=== PATIENT | female | born 1935 | race Caucasian/White ===

== ENCOUNTER 2016-10-25 06:48 | Inpatient (IN) ==
[2016-10-25] MEDS ORDERED: ZOFRAN IV ONE (07:11)
[2016-10-25] MEDS ORDERED: TYLENOL PO ONE (07:11)
[2016-10-25] MEDS ORDERED: MORPHINE IV ONE (07:11)
[2016-10-25] MEDS ORDERED: NS 1,000 ML IV ONE (07:11)
[2016-10-25 07:19] LABS: BASO% 0.2 % (0.0-0.8); EOS# 0.05 X1000 (0.0-0.7); EOS% 0.5 % (0.0-10.0); HEMATOCRIT 40.4 % (37.0-47.0); HEMOGLOBIN 13.9 g/dL (12.0-16.0); IMM GRAN# 0.03 X1000 (0.0-0.04); IMM GRAN% 0.3 % (0.0-0.5); LYMPH# 0.44 X1000 (1.2-3.4); LYMPH% 4.6 % (20.5-51.1); MANUAL DIFF NEEDED? NO; MCH 30.2 PG (27-31); MCHC 34.4 g/dL (33-37); MCV 87.6 FL (81-99); MONO# 0.53 X1000 (0.11-0.59); MONO% 5.5 % (1.7-9.3); NEUT% 88.9 % (42.2-75.2); PLT 168 X1000 (130-400); RBC 4.61 XMIL (4.2-5.4)
[2016-10-25 07:31] LABS: ALBUMIN 4.1 g/dL (3.5-5.0); CALCIUM 9.5 mg/dL (8.8-10.2); POTASSIUM 4.2 mmol/L (3.5-5.1); TOTAL BILIRUBIN 0.4 mg/dL (0.20-1.00); TOTAL PROTEIN 6.9 g/dL (6.3-8.3)
--- NOTE | 2016-10-25 07:48 | Diag Imaging Result Doc PS360 ---
EXAM: CHEST-2 VIEWS HISTORY: CP/fever/cough TECHNIQUE: Upright AP and lateral chest COMMENT: There are some vascular calcifications in the arch and proximal brachiocephalic vessels. There is no evidence of acute pulmonary disease and the heart size is within normal limits. Compared to 12/31/2015 there is been no significant change. IMPRESSION: No evidence of acute disease. Electronically signed by Wade Hale 10/25/2016 7:46 AM
[2016-10-25 07:56] LABS: INR 1.02; PROTIME 10.7 Seconds (9.2-11.7); PTT 24.7 Seconds (22.0-36.0)
[2016-10-25 07:57] LABS: URINE CULTURE NEEDED? NO; URINE MICRO REVIEW NEEDED? NO; URINE SOURCE CLEAN CATCH
[2016-10-25 07:58] LABS: MAGNESIUM 1.7 mg/dL (1.5-2.7)
[2016-10-25 08:03] LABS: BILIRUBIN URINE NEGATIVE (NEGATIVE); BLOOD URINE NEGATIVE (NEGATIVE); COLOR YELLOW; GLUCOSE URINE NEGATIVE (NEGATIVE); LEUKOCYTES URINE NEGATIVE (NEGATIVE); NITRITE URINE NEGATIVE (NEGATIVE); PROTEIN URINE TRACE mg/dL (NEGATIVE); SP GRAVITY URINE 1.021; TURBIDITY URINE CLEAR (CLEAR); UR EPITHELIAL CELLS <10 /HPF (<10); URINE BACTERIA NEGATIVE /HPF; URINE RBC <10 /HPF (<10); URINE WBC <10 /HPF (<10); UROBILINOGEN URINE NORMAL (NORMAL)
--- NOTE | 2016-10-25 08:46 | EKG Report ---
Test Performed on : 10/25/2016 08:40:01 AM Test Reason : CP Blood Pressure : / mmHG Vent. Rate : 085 BPM Atrial Rate : 085 BPM P-R Int : 160 ms QRS Dur : 080 ms QT Int : 364 ms P-R-T Axes : 078 -31 039 degrees QTc Int : 433 ms Normal sinus rhythm. Left axis deviation Abnormal ECG No previous ECGs available Unconfirmed Result
--- NOTE | 2016-10-25 09:46 | PROVIDER DOCUMENTATION ---
This chart was entered by Erinn Nichole Scribe, acting as scribe for Chris Quintero MD. HPI-Musculoskeletal Pain/Inj - GENERAL Chief Complaint: Extremity Pain Stated Complaint: foot pain Time Seen by Provider: 10/25/16 06:56 Source: patient - HX OF PRESENT ILLNESS-MUSKULOSKELTAL Nature of Presenting Problem: 80 y/o F presents to ED cc of bilat leg pain. Pt states the pain has been going on for " a while". Pt reports generalized pain all over. In triage pt had a temp of 101 and reports this as being normal for her. Pt is alert and oriented. Pt is sitting comfortable in bed. Quality of Pain: reports: aching Severity in ED: mild Onset/Duration: other ("a while") Timing: still present Modifying Factors: improves with: nothing Any recent injury?: No (denies) Review of Systems - Adult - REVIEW OF SYSTEMS - ADULT Constitutional: reports: other (generalized pain all over). denies: chills, fever Eyes: denies: blurred vision, double vision Ears, Nose, Mouth & Throat: denies: ear pain, nose pain, loose teeth, throat pain Cardiovascular: denies: chest pain, irregular heart rate, palpitations, syncope Respiratory: denies: chronic cough, cough, pleurisy, shortness of breath Genitourinary: denies: flank pain, hematuria, hesitency, urgency Musculoskeletal: reports: other (bilat leg pain). denies: bone pain, back pain , muscle aches Neurological: denies: dizziness/vertigo, headache/migraines, seizure, slurred speech, syncope, tremors Past History - Adult - PAST MEDICAL HISTORY-ADULT Review of Records: reports: Old Records Reviewed, Nursing Assessment Review Major Childhood Illnesses: reports: denies history Cardiovascular: reports: CAD, HTN Respiratory: reports: COPD Gastrointestinal: reports: denies history Obstetrical/Gynecological: reports: denies history Genitourinary: reports: denies history Musculoskeletal: reports: arthritis Neurological: reports: denies history Endocrine/Immune: reports: Diabetes Other Conditions: reports: denies history - PRIOR SURGERIES/PROCEDURES Surgical/Procedure History: reports: cholecystectomy, hysterectomy, other ( cataract surgrey) - PRIOR HOSPITALIZATIONS Prior Hospitalizations: reports: none - IMMUNIZATION STATUS Childhood Immunizations: See Nurse Assessment Flu Vaccine: See Nurse Assessment - FAMILY HISTORY Family History: reviewed, not pertinent - SOCIAL HISTORY Smoking: greater than 1 pack/day Provider spent 3-5 mins advising pt. on dangers of tobacco.: Discussed manners to quit use, and f/u contacts for add'l counseling. Substance Use: denies Physical Exam-Injury Related - Physical Exam-Injury Related Initial Vital Signs Reviewed: Yes General Appearance: appears well, alert, no apparent distress Eyes: PERRL/EOMI, pink conjunctivae Head, Ears, Nose, Mouth & Throat: moist mucous membranes, normal ENT inspection Neck: non-tender, full range of motion, supple Respiratory: chest non-tender, lungs clear, normal breath sounds Cardiovascular: normal peripheral pulses, no edema, no gallop, tachycardia Abdominal Exam: normal bowel sounds, non tender, soft Lymphatic: no adenopathy Back Exam: normal inspection, no CVA tenderness, no vertebral tenderness Extremity: normal range of motion, normal gait, tenderness (to bilat legs) Integumentary: normal color, warm/dry Neurologic: grossly normal, no motor/sensory deficits Psych/Mental Status: oriented x 3 - Glascow Coma Score Best Eye Response (Alyson): (4) open spontaneously Best Verbal Response (Alyson): (5) oriented Best Motor Response (Alyson): (6) obeys commands Eldridge Total: 15 Progress - PLAN OF CARE/RESULTS Progress/Plan/Lab Results: Vital Signs - 8 hr 10/25/16 06:51 10/25/16 08:00 10/25/16 08:02 Temperature 101.6 F H Pulse Rate 121 H 91 H Respiratory Rate 18 18 Blood Pressure 139/52 123/46 O2 Sat by Pulse Oximetry 94 L 91 L 98 10/25/16 09:28 Temperature Pulse Rate 74 Respiratory Rate 25 H Blood Pressure 123/46 O2 Sat by Pulse Oximetry 96 Laboratory Results - last 24 hr 10/25/16 10/25/16 10/25/16 07:00 07:00 07:00 WBC 9.64 RBC 4.61 Hgb 13.9 Hct 40.4 MCV 87.6 MCH 30.2 MCHC 34.4 RDW Std Deviation 13.2 Plt Count 168 MPV 11.0 H Immature Gran % (Auto) 0.3 Neut % (Auto) 88.9 H Lymph % (Auto) 4.6 L Hall % (Auto) 5.5 Eos % (Auto) 0.5 Baso % (Auto) 0.2 Immature Gran # (Auto) 0.03 Neut # (Auto) 8.57 H Lymph # (Auto) 0.44 L Hall # (Auto) 0.53 Eos # (Auto) 0.05 Baso # (Auto) 0.02 PT INR PTT (Actin FS) D-Dimer Sodium 138 Potassium 4.2 Chloride 100 Carbon Dioxide 24 L Anion Gap 14 BUN 17 Creatinine 1.1 H Estimated GFR/1.73 m2 48 BUN/Creatinine Ratio 15 Glucose 180 H Calculated Osmolality 282 Calcium 9.5 Magnesium Total Bilirubin 0.40 AST 26 ALT 24 Alkaline Phosphatase 42 Creatine Kinase Troponin T Lvf-[id number]-Xmncxfxxrvc Pept Total Protein 6.9 Albumin 4.1 Globulin 2.8 Albumin/Globulin Ratio 1.5 Lipase Plasma Lactate 1.5 Urine Source Urine Color Urine Turbidity Urine pH Ur Specific [place] Urine Protein Ur Glucose (Stick) Ur Ketones (Stick) Urine Blood Urine Nitrite Urine Bilirubin Urobilinogen Dipstick Urine Leukocytes Urine WBC (Auto) Urine RBC (Auto) U Epithel Cells (Auto) Urine Bacteria (Auto) 10/25/16 10/25/16 10/25/16 07:00 07:00 07:00 WBC RBC Hgb Hct MCV MCH MCHC RDW Std Deviation Plt Count MPV Immature Gran % (Auto) Neut % (Auto) Lymph % (Auto) Hall % (Auto) Eos % (Auto) Baso % (Auto) Immature Gran # (Auto) Neut # (Auto) Lymph # (Auto) Hall # (Auto) Eos # (Auto) Baso # (Auto) PT INR PTT (Actin FS) D-Dimer 0.67 H Sodium Potassium Chloride Carbon Dioxide Anion Gap BUN Creatinine Estimated GFR/1.73 m2 BUN/Creatinine Ratio Glucose Calculated Osmolality Calcium Magnesium 1.7 Total Bilirubin AST ALT Alkaline Phosphatase Creatine Kinase 35 Troponin T Qgv-[id number]-Qpcmnlhxjbv Pept 118 Total Protein Albumin Globulin Albumin/Globulin Ratio Lipase 25 Plasma Lactate Urine Source Urine Color Urine Turbidity Urine pH Ur Specific [place] Urine Protein Ur Glucose (Stick) Ur Ketones (Stick) Urine Blood Urine Nitrite Urine Bilirubin Urobilinogen Dipstick Urine Leukocytes Urine WBC (Auto) Urine RBC (Auto) U Epithel Cells (Auto) Urine Bacteria (Auto) 10/25/16 10/25/16 10/25/16 07:00 07:00 07:51 WBC RBC Hgb Hct MCV MCH MCHC RDW Std Deviation Plt Count MPV Immature Gran % (Auto) Neut % (Auto) Lymph % (Auto) Hall % (Auto) Eos % (Auto) Baso % (Auto) Immature Gran # (Auto) Neut # (Auto) Lymph # (Auto) Hall # (Auto) Eos # (Auto) Baso # (Auto) PT 10.7 INR 1.02 PTT (Actin FS) 24.7 D-Dimer Sodium Potassium Chloride Carbon Dioxide Anion Gap BUN Creatinine Estimated GFR/1.73 m2 BUN/Creatinine Ratio Glucose Calculated Osmolality Calcium Magnesium Total Bilirubin AST ALT Alkaline Phosphatase Creatine Kinase Troponin T < 0.010 Doj-T-Uqjphsauecm Pept Total Protein Albumin Globulin Albumin/Globulin Ratio Lipase Plasma Lactate Urine Source CLEAN CATCH Urine Color YELLOW Urine Turbidity CLEAR Urine pH 6.0 Ur Specific [place] 1.021 Urine Protein TRACE A Ur Glucose (Stick) NEGATIVE Ur Ketones (Stick) TRACE A Urine Blood NEGATIVE Urine Nitrite NEGATIVE Urine Bilirubin NEGATIVE Urobilinogen Dipstick NORMAL Urine Leukocytes NEGATIVE Urine WBC (Auto) <10 Urine RBC (Auto) <10 U Epithel Cells (Auto) <10 Urine Bacteria (Auto) NEGATIVE Orders Category Date Time Status Cardiac Monitoring DIRECTED Care 10/25/16 07:11 Active Saline Loc NOW Care 10/25/16 07:11 Active CHEST-2 VIEWS [RAD] Stat Exams 10/25/16 07:11 Completed BLOOD CULTURE [BLDCUL] Stat Lab 10/25/16 07:00 Ordered CBC WITH ELECTRONIC DIFF [HEME] Stat Lab 10/25/16 07:00 Completed CK PROFILE [SP CHEM] Stat Lab 10/25/16 07:00 Completed COMPREHENSIVE METABOLIC PANEL [CHEM] Stat Lab 10/25/16 07:00 Completed D-DIMER [CHEM] Stat Lab 10/25/16 07:00 Completed LACTATE, PLASMA [CHEM] Stat Lab 10/25/16 07:00 Completed LIPASE [CHEM] Stat Lab 10/25/16 07:00 Completed MAGNESIUM [CHEM] Stat Lab 10/25/16 07:00 Completed PRO B-NATRIURETIC PEPTIDE Stat Lab 10/25/16 07:00 Completed PROTIME WITH INR [COAG] Stat Lab 10/25/16 07:00 Completed PTT [COAG] Stat Lab 10/25/16 07:00 Completed TROPONIN T Stat Lab 10/25/16 07:00 Completed UA NIMS W/REFLEX CULT [URINALYSIS] Stat Lab 10/25/16 07:51 Completed 0.9% Sodium Chloride Inj [Ns] 1,000 ml Med 10/25/16 07:11 Discontinued IV 999 mls/hr Acetaminophen [Tylenol] Med 10/25/16 07:11 Discontinued 1,000 mg PO NOW ONE Morphine Med 10/25/16 07:11 Discontinued 4 mg IV NOW ONE Ondansetron [Zofran] Med 10/25/16 07:11 Discontinued 4 mg IV NOW ONE EKG [EKG] Stat Ther 10/25/16 07:11 Draft PLAN: LABS , TREAT PAIN/NAUSEA , EKG , MONITOR PT Result Diagrams: 10/25/16 07:00 10/25/16 07:00 - REASSESSMENT Reassessment #1 Time Reassessed: 09:42 Status: improving (Pt is doing well w/o complaints. Daughter expressed the concerns that pt is more and more forgetting and can not take care of herself/ weak with agitations occassionally, etc. Daughter wants pt to be thoroughtly evaluated.) - CONSULTS/PCP/HOSPITALIST Notification #1 *Consult/PCP/Hospitalist*: Dr. Brown Time Discussed: 09:45 Reason/Comments: Admit to [place] Consult Disposition: Admit Departure - Departure Date of Disposition Decision: 10/25/16 Time of Disposition Decision: 09:45 DIAGNOSIS: Fever, Altered mental status, Leg pain Disposition: ADMITTED INPATIENT 09 Certified Medical Emergency: Emergent Condition: Stable Referrals and Follow-Ups: None,PCP [Primary Care Provider] - - Critical Care Note This patient required my direct & personal management of CC.: No This chart was documented by the indicated scribe, (Erinn Nichole Scribe) and accurately reflects the services I performed and decisions made by me, Chris Quintero MD, as attested by the provider's signature.
--- NOTE | 2016-10-25 10:50 | Diag Imaging Result Doc PS360 ---
EXAM: HEAD W/O CONTRAST INDICATION: AMS COMPARISON: None. FINDINGS: There is very minimal low-attenuation in the right parietal lobe periventricular and subcortical white matter suggesting minimal microangiopathy. There is no definite acute infarct given the limited sensitivity of CT versus MRI. There is no discrete intracranial mass, mass effect, or intracranial hemorrhage. The surrounding soft tissues and bony structures are essentially unremarkable. IMPRESSION: Suggestion of minimal white matter microangiopathy but no definite acute intracranial pathology. Electronically signed by Can Hill 10/25/2016 10:48 AM
[2016-10-25] MEDS ORDERED: DUONEB (A & A) INH PRN (11:45)
--- NOTE | 2016-10-25 12:51 | Diag Imaging Result Doc PS360 ---
EXAM: ABDOMEN/PELVIS W/CONTRAST INDICATION: abdominal pain / fever COMPARISON: None. FINDINGS: There are several calcified granulomata in the liver and the spleen. There has been a previous cholecystectomy. There are a couple small cystic appearing foci at the lower pole of the left kidney, perhaps containing blood products or proteinaceous debris. The kidneys are grossly unremarkable, otherwise. There is extensive diverticulosis coli, mainly involving the sigmoid and descending colon. There is no evidence of diverticulitis, however. There is no evidence of bowel obstruction. There are several shotty borderline prominent retroperitoneal as well as epigastric lymph nodes that are nonspecific. For reference, one of the larger lymph nodes is in the retroperitoneum on the left on image 45 of series 3 and measures up to 11.2 x 1.0 cm axially. There is trace nonspecific fluid layering in the pelvis. No focal inflammatory changes or free abdominal gas is appreciated. There is extensive aortoiliac atherosclerotic disease but there is no evidence of aneurysm. The remainder of the solid viscera of the abdomen and pelvis and the remainder of the GI tract are essentially unremarkable. There is evidence of prior kyphoplasty/vertebroplasty at L1. There are degenerative changes throughout the spine. Otherwise, the bony structures are grossly intact. IMPRESSION: 1.Extensive uncomplicated diverticulosis coli. 2.Nonspecific shotty borderline prominent retroperitoneal and epigastric lymph nodes. 3.Trace pelvic free fluid that is nonspecific. 4.Other incidental/nonacute findings detailed above. Electronically signed by Can Hill 10/25/2016 12:48 PM
--- NOTE | 2016-10-25 12:56 | HISTORY AND PHYSICAL ---
PRIMARY CARE PROVIDER: Dr. Rodrigo Brown. CHIEF COMPLAINT: Leg and abdominal pain. HISTORY OF PRESENT ILLNESS: Rodolfo Kerr is an 80-year-old female with a history of nicotine dependence, type 2 diabetes, COPD, history of TIAs, hypertension, hyperlipidemia, PAF, and arthritis, who presents with very vague complaints of right lower extremity pain that began this morning at around midnight. It woke her up out of sleep. She reports foot pain that began to travel up her right leg, eventually into both legs, and then switching back over to the right side, traveling up the right side of her abdomen and ultimately into the midsternal section of her chest. The symptoms have been constant since they began. She reports some abdominal pain and nausea, but no vomiting, and some mild shortness of breath, but no exertional type of angina. The symptoms brought her to the ER. In the ER, her labs were done and they were essentially normal with the exception of some mildly elevated renal function. Her vital signs, however, revealed a fever of 101.6 with tachycardia. She reports that she has had a bladder mass procedure done in the past and that it was not completely taken out, and she was told she would have fevers all of her life. She has no other signs of systemic infection. Her lactic acid is only 1.5. She does, however, have some significant right upper quadrant tenderness to palpation. So, given the fever and abdominal pain, we are going to admit her for further treatment and evaluation. PAST MEDICAL HISTORY: 1. COPD. 2. Nicotine dependence. 3. Hypertension. 4. Hyperlipidemia. 5. Paroxysmal atrial fibrillation. 6. Type 2 diabetes. SURGICAL HISTORY: She has had a D and C, bladder sling, bladder mesh, back surgery, bilateral oophorectomy, cholecystectomy. SOCIAL HISTORY: Patient smokes a pack a day. She is . She lives in [place] by herself. She does have the support of her children. FAMILY HISTORY: Noncontributory. REVIEW OF SYSTEMS: A 14-point review of systems was obtained and found to be negative with the exception of the HPI. ALLERGIES: Milk, onions, penicillin, Tylenol, aspirin, carrots, and codeine. HOME MEDICATIONS: Currently being compiled. PHYSICAL EXAMINATION: VITAL SIGNS: Blood pressure is 123/46, heart rate 74, respiratory rate 18, O2 saturation 99% on room air, and temperature is 98.6 degrees. GENERAL: This is an elderly and disheveled-appearing 80-year-old female, lying in the hospital bed in no acute distress. NEUROLOGIC: The patient is awake and alert. She is slightly confused. She thought she was at [facility], but answered all her other orientation questions correctly. She follows commands without focal deficits. HEENT: Head is atraumatic and normocephalic. Her pupils are equal, round, and reactive to light. Oral mucosa is a bit dry. Trachea is midline. There is no JVD. CHEST: Diminished throughout, with scattered wheezes. CARDIOVASCULAR: Regular rate and rhythm. S1 and S2 noted. No murmurs. GASTROINTESTINAL: Right upper quadrant tenderness to palpation. Overall, belly is soft and nondistended. Hypoactive bowel sounds noted. EXTREMITIES: Without edema, clubbing or cyanosis. Pulses are palpable, but diminished bilaterally. DIAGNOSTIC DATA: Chest x-ray does not show anything acute. Head CT is negative. EKG shows normal sinus rhythm without acute ST or T abnormalities. WBC 9.64, hemoglobin 4.61, hemoglobin 13.9, hematocrit 40.4, platelet count 168,000. PT 10.7 and INR 1.02. D-dimer 0.67. Sodium 138, potassium 4.2, chloride 100, CO2 of 24, anion gap 14, BUN 17, creatinine 1.1 glucose 180. LFTs within normal limits. Magnesium 1.7. Troponin negative. Lactate 1.5. UA is negative. ASSESSMENT AND PLAN: 1. Fever of unknown origin: Boyle cultures have been ordered. We are also going to check a CT of the abdomen and pelvis, given her abdominal pain. We will not start any antibiotics at present, as she has no clear indications. 2. Abdominal pain: We will check ultrasound and CT of the abdomen, keep her hydrated with IV fluids and give her antiemetics. 3. Chronic obstructive pulmonary disease: Not in exacerbation. She is wheezing a little, so we will give her some breathing treatments. 4. Type 2 diabetes. Will start pattern blood sugars and sliding scale insulin, and check an A1c. 5. Mild renal insufficiency: Given her age and weight, her GFR is reduced. We will give her IV fluids and monitor her response. 6. Hypertension: Chronic and stable. Continue home medications once they have been reconciled. 7. Paroxysmal atrial fibrillation: Currently in sinus rhythm. We will continue home medications. Monitor telemetry. 8. Vague chest pain: Will rule out myocardial infarction with cardiac enzymes. The pain is atypical, bordering on noncardiac. 9. Deep vein thrombosis prophylaxis with Lovenox. Further recommendations to follow. Dictated by JEFF Alves for Eugene King MD cc: JEFF Alves MD Gregory S. Cheatham, MD
--- NOTE | 2016-10-25 14:03 | Diag Imaging Result Doc PS360 ---
EXAM: US GB < RUQ (LIMITED) INDICATION: abd pain COMPARISON: None. FINDINGS: There has been a previous cholecystectomy. The common bile duct is normal in diameter for age and postcholecystectomy status. The liver is grossly unremarkable. Portal venous flow is hepatopedal. The visualized pancreas is unremarkable. The aorta and IVC are grossly unremarkable. The right kidney is grossly unremarkable. IMPRESSION: Essentially unremarkable right upper quadrant abdominal ultrasound status post cholecystectomy. Electronically signed by Can Hill 10/25/2016 2:01 PM
[2016-10-25] MEDS: CARAFATE PO SCH ×2 (14:49→19:02)
[2016-10-25] MEDS: NICODERM PATCH TD SCH (14:49)
[2016-10-25] MEDS: NS 1,000 ML IV SCH (14:50)
[2016-10-25] MEDS: DUONEB (A & A) INH SCH ×3 (15:55→22:49)
[2016-10-25] MEDS: HUMALOG SUBQ SCH ×2 (16:23→21:45)
[2016-10-25] MEDS: ATIVAN PO SCH (21:41)
[2016-10-25] MEDS: ZANTAC PO SCH (21:41)
[2016-10-26] MEDS: CARAFATE PO SCH ×5 (00:34→23:29)
[2016-10-26] MEDS: DUONEB (A & A) INH SCH ×5 (03:45→23:01)
[2016-10-26] MEDS: HUMALOG SUBQ SCH ×4 (06:41→21:05)
[2016-10-26 07:45] LABS: HEMATOCRIT 36.1 % (37.0-47.0); HEMOGLOBIN 11.9 g/dL (12.0-16.0); MCH 30.3 PG (27-31); MCV 91.9 FL (81-99); MPV 10.8 FL (7.4-10.4); RBC 3.93 XMIL (4.2-5.4)
[2016-10-26] MEDS: NS 1,000 ML IV SCH ×2 (07:45→20:00)
[2016-10-26 07:57] LABS: HEMOGLOBIN A1C 6.6 % (4.8-6.0)
[2016-10-26 08:16] LABS: CALCIUM 9.2 mg/dL (8.8-10.2); POTASSIUM 3.9 mmol/L (3.5-5.1)
[2016-10-26] MEDS: NICODERM PATCH TD SCH (09:47)
[2016-10-26] MEDS: LOVENOX SUBQ SCH (09:48)
[2016-10-26] MEDS: ZANTAC PO SCH ×2 (09:48→20:55)
[2016-10-26] MEDS: LOPRESSOR PO SCH (09:48)
--- NOTE | 2016-10-26 16:18 | PROGRESS NOTE ---
DATE: 10/26/2016 SUBJECTIVE: This patient states that she is not having fever or chills today. She is complaining of left hip pain radiating to the knee and leg. She denies nausea, vomiting, diarrhea, or constipation. No chest pain. No shortness of breath. OBJECTIVE: Vital Signs: Temperature 99 degrees, pulse 70, respiratory rate 20, blood pressure 153/48, oxygen saturation 98% on 2L nasal cannula. HEENT: Head normocephalic. No trauma. PERRLA. Neck: Supple. No JVD. No masses. Central trachea. Chest: Clear to auscultation. No wheezing. No rales. Cardiovascular: RRR. No murmurs. Gastrointestinal: The right upper quadrant and epigastrium is a little bit tender to palpation. Positive bowel sounds. Extremities: No edema. No clubbing. No cyanosis. She has pain at the level of the right hip radiating to the left knee and leg. Neurologic: The patient is alert and oriented x3. LABORATORY: WBC 4.1, hemoglobin 11.9, hematocrit 36.1, platelets 131,000. Sodium 141, potassium 3.9, chloride 104, bicarbonate 24, BUN 11, creatinine 1, glucose 150, calcium 9.2. ASSESSMENT AND PLAN: 1. Fever of unknown origin. This patient is not getting antibiotics. She had an episode of fever yesterday at the emergency department, but no more fever afterwards. Cultures so far have been negative. We will continue to monitor. 2. Abdominal pain. We did an ultrasound and a CT scan that did not show any acute abnormality. 3. Chronic obstructive pulmonary disease without exacerbation. Continue with the same treatment and monitoring. 4. Type 2 diabetes. Continue with sliding scale and pattern of blood sugar. 5. Mild renal insufficiency. We have a creatinine from 2015 that was 0.9 and today it is 1. 6. Paroxysmal atrial fibrillation, currently in sinus rhythm. Continue with home medications. 7. Atypical chest pain. Today, she is not complaining about chest pain. We did cardiac enzymes that were negative x3. 8. Deep vein thrombosis prophylaxis with Lovenox. cc: Eugene King MD
[2016-10-26] MEDS: ATIVAN PO SCH (20:55)
[2016-10-27] MEDS: NS 1,000 ML IV SCH ×2 (03:06→20:18)
[2016-10-27] MEDS: DUONEB (A & A) INH SCH ×6 (03:51→23:26)
[2016-10-27] MEDS: HUMALOG SUBQ SCH ×4 (06:16→21:02)
[2016-10-27] MEDS: CARAFATE PO SCH ×3 (06:16→17:47)
[2016-10-27 06:54] LABS: MANUAL DIFF NEEDED? NO
[2016-10-27 07:01] LABS: EOS# 0.13 X1000 (0.0-0.7); EOS% 2.8 % (0.0-10.0); HEMATOCRIT 35.5 % (37.0-47.0); HEMOGLOBIN 12.1 g/dL (12.0-16.0); LYMPH# 0.95 X1000 (1.2-3.4); LYMPH% 20.4 % (20.5-51.1); MCHC 34.1 g/dL (33-37); MCV 87.9 FL (81-99); MONO# 0.58 X1000 (0.11-0.59); MONO% 12.4 % (1.7-9.3); MPV 10.7 FL (7.4-10.4); NEUT% 64.4 % (42.2-75.2); PLT 128 X1000 (130-400); RBC 4.04 XMIL (4.2-5.4)
[2016-10-27 07:38] LABS: CALCIUM 9.4 mg/dL (8.8-10.2); POTASSIUM 3.7 mmol/L (3.5-5.1)
[2016-10-27] MEDS: NICODERM PATCH TD SCH (09:43)
[2016-10-27] MEDS: ZANTAC PO SCH ×2 (09:44→21:02)
[2016-10-27] MEDS: LOVENOX SUBQ SCH (09:44)
[2016-10-27] MEDS: LOPRESSOR PO SCH (09:44)
[2016-10-27] MEDS ORDERED: DULCOLAX PR ONE (10:52)
[2016-10-27] MEDS ORDERED: DULCOLAX PR PRN (10:52)
--- NOTE | 2016-10-27 13:36 | Diag Imaging Result Doc PS360 ---
EXAM: HIP W/PELVIS BILAT 2 VIEWS INDICATION: Right hip pain TECHNIQUE: 3 views COMPARISON: 11/13/2013 FINDINGS: There are degenerative changes of both hips, worse on the right. There is no discrete fracture, dislocation, or significant intrinsic osseous lesion, otherwise. There is joint space narrowing at the right hip that has worsened during the interval. The surrounding soft tissues are essentially unremarkable. IMPRESSION: Degenerative changes as described with worsening joint space loss at the right hip. Electronically signed by Can Hill 10/27/2016 1:33 PM
--- NOTE | 2016-10-27 15:14 | PROGRESS NOTE ---
DATE: 10/27/2016 SUBJECTIVE: This patient states that she is feeling a little bit better. She is still complaining of severe right hip pain radiated to the knee, this is likely related with severe osteoarthritis. Orthopedic surgery has been consulted. Also this patient has been having fever low-grade yesterday and the day before. I do not have any source of infection at this moment. OBJECTIVE: Vital Signs: Temperature 98.4 degrees, pulse 67, respiratory rate 20, blood pressure 165/70, O2 saturation 97% on room air. HEENT: Head normocephalic. No trauma. PERRLA. Neck: Supple. No JVD. No masses. Central trachea. Chest: Clear to auscultation. No wheezing. No rales. Cardiovascular: RRR. Abdomen: Right upper quadrant and epigastrium tenderness. Positive bowel sounds. Extremities: No edema. No clubbing. No cyanosis. She has pain at the level of the right hip with palpation and mobilization. Neurological: The patient is alert and oriented times x3. No focal deficits. LABORATORY: WBC 4.6, hemoglobin 12.1, hematocrit 35.5, platelets 128,000. Sodium 143, potassium 3.7, chloride 106, bicarbonate 23, BUN 8, creatinine 0.9, glucose 132, calcium 9.4. ASSESSMENT AND PLAN: 1. Fever of unknown origin. This patient is not getting antibiotics at this moment. She had an episode of low grade fever today. Probably this is viral, Infectious Disease Department has been consulted. 2. Abdominal pain. We did an ultrasound and a CT scan that did not show any acute abnormality. We will continue to monitor. 3. Chronic obstructive pulmonary disease without exacerbation. Continue with the same treatment and monitoring. 4. Right hip pain likely related to severe osteoarthritis. Orthopedic surgery has been consulted. Probably this patient will need to follow up with them as an outpatient. 5. Type 2 diabetes. Continue with the sliding scale and pattern of blood sugar. 6. Mild renal insufficiency resolved. 7. Paroxysmal atrial fibrillation currently in sinus rhythm. Continue with home medication. 8. Atypical chest pain. Today she is not complaining about chest pain and with the cardiac enzymes that are negative. 9. Deep vein thrombosis prophylaxis with Lovenox. cc: Eugene King MD
[2016-10-27] MEDS ORDERED: MIRALAX PO ONE (16:04)
--- NOTE | 2016-10-27 16:57 | Diag Imaging Result Doc PS360 ---
EXAM: LUMBAR SPINE 2-VIEWS INDICATION: low back pain TECHNIQUE: 2 views COMPARISON: 11/13/2013 FINDINGS: The bones are osteopenic. There is a compression deformity at L1 with interval vertebroplasty/kyphoplasty. There are stable multilevel endplate degenerative changes and dexterous scoliosis. There is no definite acute fracture, subluxation, or intrinsic osseous lesion. There is stable aortic calcification. IMPRESSION: Chronic changes as described but no definite acute osseous abnormality. Electronically signed by Can Hill 10/27/2016 4:55 PM
--- NOTE | 2016-10-27 20:30 | CONSULTATION ---
DATE OF CONSULTATION: 10/27/2016 CONCLUSION: The patient when she came in the hospital had temperature up to 102 and since that time she has had 1 temperature that was 100 and the rest of the time she has been afebrile. I am uncertain as to the cause of the fever. She has complained of a lot of pain in her right hip but in her bed I was able to passively move her hip without any pain so I doubt she has hip infection. She also complains of low back pain. On exam it was not tender but possibly a lumbar spine infection is a diagnostic possibility. Her chest x-ray does not show any evidence of pneumonia. RECOMMENDATIONS: I have ordered a lumbar spine x-ray. Since the patient does have complaints of abdominal pain I am going to go ahead and get a CT scan of the abdomen. DISCUSSION: The patient initially came to the to the hospital with leg and abdominal pain. She told me that the pain is worse in her right hip and back and then it goes up into the chest. As mentioned above, she had fever when she 1st came to the hospital. Laboratory studies thus far show a CBC with a white count of 4660, hemoglobin 12.1, and platelet count 128,000. Creatinine is 0.9. GFR is 60. Urinalysis shows no white cells or bacteria. CT scan of the abdomen and pelvis show diverticulosis and shotty lymphadenopathy. CT scan of the head showed no acute disease. Chest x-ray also showed no acute disease. PAST MEDICAL HISTORY/REVIEW OF SYSTEMS: Eyes and ears: She has decreased hearing and vision. Neck: No stiffness. Respiratory: She has had dyspnea especially with exertion for the past 6 months. Cardiovascular: The patient does not complain of any palpitation. She does have chest pain but usually it is associated with pain in her hip which radiates up into the chest. GI: Patient states she has had nausea for the past year and constipation for 2 years. Bones, joints, muscles: She does have diffuse pain in the joints of her arms and legs. She has not had swelling of the joints however. Endocrine: Patient has diabetes but not thyroid disease. Neurologic: The patient has not had seizures and she is not having any unilateral loss of motor or sensory function. The remainder of the patient's review of systems was completed and was negative. 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 She has had a hysterectomy and bilateral salpingo-oophorectomy. PREVIOUS HOSPITALIZATIONS AND OPERATIONS: Patient has had labor and deliveries, a miscarriage, a hysterectomy and bilateral salpingo-oophorectomy. She has had hemorrhoidectomy, cholecystectomy, surgery for peptic ulcer disease and placement of bladder mesh. MEDICAL DISEASES: Positive for diabetes mellitus, hypertension, transient ischemic attacks, hyperlipidemia and osteoarthritis. INFECTIOUS DISEASE HISTORY: Positive for UTI. FAMILY HISTORY: Positive for diabetes mellitus, hypertension, myocardial infarction and cancer. [place]IAL HISTORY[place] Stopped smoking cigarettes a year ago. She does not drink alcoholic beverages or abuse drugs. She is a . She lives with her daughter. Daughter has a dog as a pet. Patient is disabled. ALLERGIES: Penicillin and codeine. The penicillin allergy was manifested by hives. It occurred about I think she says 62 years ago. HOME MEDICATIONS: Include MiraLAX, Humalog, Plavix, oxycodone, lorazepam, fenofibrate, diclofenac, gabapentin, Septra, Ativan, Robaxin, Zantac, metoprolol and sucralfate. PHYSICAL EXAMINATION: Vital Signs: Temperature is 98.7 degrees, pulse 67, respirations 18, blood pressure 165/70. Generally: This is a chronically ill-appearing elderly female. She is in no acute distress. Head, eyes, ears, nose, and throat: She can hear my spoken words and see near objects. She is wearing dentures. Neck: No meningismus. Thorax: No increased AP diameter of the chest. Lungs: Clear to auscultation. Cardiovascular: Heart rate was regular. Abdomen: Soft and nontender. Extremities: She has edema of the legs but no erythema. Neurologic: Patient is awake. She can move her extremities. Sensation is intact to touch. Her memory, as regarding her medical history seemed to do fairly well. Thank you for the consult. cc: Romaine Shook MD
[2016-10-27] MEDS: ATIVAN PO SCH (21:02)
--- NOTE | 2016-10-27 21:43 | Diag Imaging Result Doc PS360 ---
EXAM: ABDOMEN W/CONTRAST HISTORY: abdominal pain TECHNIQUE: Dose reduction protocol COMPARISON: 10/25/2016 FINDINGS: The gallbladder has been removed. There are many scattered hepatic and splenic granuloma. No other hepatic or splenic abnormality. No inflammation about the pancreas. Normal adrenal glands. No focal renal abnormality. Prominent atherosclerosis. No aneurysmal dilatation to the aorta. No bowel obstruction. No abscess. No free air. There are small scattered mesenteric and para-aortic lymph nodes. IMPRESSION: No change from 10/25/2016 A preliminary report was given at 8:54 PM Electronically signed by Goran Hercules 10/27/2016 9:40 PM
[2016-10-28] MEDS: CARAFATE PO SCH ×4 (01:37→18:38)
[2016-10-28] MEDS: DUONEB (A & A) INH SCH ×6 (03:24→23:18)
[2016-10-28 06:36] LABS: MANUAL DIFF NEEDED? NO
[2016-10-28 07:07] LABS: AGAP 11; BUN 7 mg/dL (8-22); CALCIUM 9.7 mg/dL (8.8-10.2); CHLORIDE 103 mmol/L (98-107); COSMO 283; POTASSIUM 3.5 mmol/L (3.5-5.1); SODIUM 142 mmol/L (136-145); TCO2 28 mmol/L (25-35)
[2016-10-28 07:09] LABS: EOS# 0.22 X1000 (0.0-0.7); EOS% 4.4 % (0.0-10.0); HEMATOCRIT 36.8 % (37.0-47.0); HEMOGLOBIN 12.5 g/dL (12.0-16.0); LYMPH# 1.04 X1000 (1.2-3.4); MCH 30.1 PG (27-31); MCV 88.7 FL (81-99); MONO# 0.54 X1000 (0.11-0.59); MONO% 10.9 % (1.7-9.3); MPV 11.1 FL (7.4-10.4); NEUT% 63.7 % (42.2-75.2); PLT 133 X1000 (130-400); RBC 4.15 XMIL (4.2-5.4)
[2016-10-28] MEDS: HUMALOG SUBQ SCH ×4 (07:52→22:09)
[2016-10-28] MEDS ORDERED: MIRALAX PO SCH (09:00)
[2016-10-28] MEDS: LOVENOX SUBQ SCH (09:02)
[2016-10-28] MEDS: LOPRESSOR PO SCH (09:03)
[2016-10-28] MEDS: ZANTAC PO SCH ×2 (09:03→22:09)
[2016-10-28] MEDS: NICODERM PATCH TD SCH (09:04)
[2016-10-28] MEDS ORDERED: NEURONTIN PO PRN (11:32)
[2016-10-28] MEDS ORDERED: ROBAXIN PO PRN (11:32)
[2016-10-28] MEDS: MORPHINE IV PRN ×2 (12:10→18:57)
--- NOTE | 2016-10-28 14:39 | PROGRESS NOTE ---
DATE: 10/28/2016 SUBJECTIVE: This patient is still complaining of right hip pain mostly with movement, she has right severe osteoarthritis, Orthopedic Surgery as per the patient, evaluated her. For the past 24 hours she is has not been having any fever or chills, Infectious Disease Department is following this patient. Probably this is a viral syndrome. CT scan of the abdomen and x-ray of the lumbar area did show any acute abnormality. OBJECTIVE: Vital Signs: Temperature 98.1 degrees, pulse 84, respiratory rate 21, blood pressure 136/91. O2 saturation 99 on 2 L of nasal cannula. HEENT: Head normocephalic. No trauma. PERRLA. Neck: Supple. No JVD. No masses. Central trachea. Chest: Clear to auscultation. No wheezing. No rales. Cardiovascular: Regular rhythm and rate. Abdomen: Right upper quadrant and epigastric discomfort. Positive bowel sounds. Extremities: No edema. No clubbing. No cyanosis. She has pain at the level of the right hip with palpation and mobilization. Neurological: The patient is alert and oriented x3. No focal deficits. LABORATORY: WBC 4.9, hemoglobin 12.5, hematocrit 36.8, platelets 133,000. Sodium 142, potassium 3.5, chloride 103, bicarbonate 28, BUN 7, creatinine 0.8, glucose 129. Calcium 9.7. ASSESSMENT AND PLAN: 1. Fever of unknown origin. This patient is still getting antibiotics at this moment. No fever for the past 24 hours and yesterday she just had a low grade fever. Probably this is a viral infection. Infectious Disease Department is following this patient and so far blood cultures, sputum culture and urine culture have been negative. 2. Abdominal pain. We did an ultrasound and CT scan of the abdomen that did not show any acute abnormality. 3. Chronic obstructive pulmonary disease without exacerbation. Continue with the same treatment and monitoring. 4. Right hip pain likely secondary to severe osteoarthritis. This patient likely will require surgery/hip replacement. 5. Type 2 diabetes. Continue with the sliding scale and pattern blood sugar. 6. Mild renal insufficiency. Resolved. 7. Paroxysmal atrial fibrillation. Currently in sinus rhythm. Continue with home medication. 8. Atypical chest pain. Today she has not complaining about chest pain. Cardiac enzymes have been negative. Continue with the same management. 9. Deep vein thrombosis prophylaxis with Lovenox. cc: Eugene King MD
--- NOTE | 2016-10-28 14:54 | CONSULTATION ---
DATE OF CONSULTATION: 10/28/2016 REASON FOR CONSULTATION: Right hip pain. PRIMARY CARE PROVIDER: Rodrigo Brown MD HISTORY OF PRESENT ILLNESS: This is an 80-year-old female, with a history of nicotine dependence, type 2 diabetes, COPD, history TIAs, hypertension, hyperlipidemia, paroxysmal atrial fibrillation, and arthritis, who presented to the ER with complaints of right lower extremity pain that goes from hip all the way down to her foot. She did present to the ER with other complaints as well, but we have been asked to see her specifically for the right hip pain. PAST MEDICAL HISTORY: COPD, nicotine dependence, hypertension, hyperlipidemia, paroxysmal atrial fibrillation, type 2 diabetes, and arthritis. SURGICAL HISTORY: She has had a D and C, bladder sling, bladder mass, back surgery, bilateral oophorectomy, and cholecystectomy. SOCIAL HISTORY: Patient was smoking a pack a day up until about a week ago. She states she is trying to quit. She is and lives [place] alone. FAMILY HISTORY: Noncontributory. REVIEW OF SYSTEMS: A 14 point review of systems obtained and found to be negative, with the exception with admission history of present illness. ALLERGIES: Milk, onions, penicillin, Tylenol, aspirin, carrots, and codeine. MEDICATION: Refer to chart. PHYSICAL EXAMINATION: Vital Signs: Temperature is 98.9 degrees, pulse is 100, respiratory rate is 22, blood pressure is 153/60. She is 99% on 2 L. General: She is currently lying in the bed, in no acute distress. She does complain of pain with range of motion to the right hip and leg. Neurologic: She is awake and alert. She is oriented x3. She follows commands without any deficits. HEENT: Head is atraumatic, normocephalic. Pupils are equal, round, reactive to light. Chest: Diminished throughout. Respirations are unlabored and equal. Cardiovascular: Regular rate and rhythm. No murmurs. Gastrointestinal: No tenderness currently. Belly is soft and nondistended. Extremities: Right lower extremity, good sensation although she does complain of burning. Good pedal pulse. Good tibial pulse. No abrasions or lacerations. She is stiff. Poor range of motion. Poor external rotation. Limited flexion of the knee. ASSESSMENT AND PLAN: Right hip osteoarthritis. We did order an x-ray and CT of the hip and pelvis that showed degenerative changes with joint space loss at the right hip. There is no obvious breaks or bone injury anywhere. We do believe this is right hip osteoarthritis. We will plan to followup with her outpatient. We have suggested to her and the family that she should followup with Dr. Vidal or Dr. Clifford. The family states that she has tried many things to try to control this pain, as well as seeing a pain doctor, so at this time we do suggest a likely course be a total hip arthroplasty. Dictated by JEFF Mixon for Mahesh Jain MD cc: JEFF Mixon MD
[2016-10-28] MEDS: NS 1,000 ML IV SCH ×2 (19:13)
[2016-10-28] MEDS: ATIVAN PO SCH (22:08)
[2016-10-28] MEDS: PERCOCET-5 PO SCH (22:08)
[2016-10-28] MEDS: MIRALAX PO SCH (23:07)
[2016-10-29] MEDS: CARAFATE PO SCH ×4 (01:19→17:47)
--- NOTE | 2016-10-29 01:55 | PROGRESS NOTE ---
DATE: 10/28/2016 PRESENT ILLNESS: I was asked to see the patient because she had a fever, the exact etiology of which is uncertain to me. Tonight, she tells me that she is having pain in her latter day. On exam, I did feel a tender, swollen temporal artery, but still I think temporal arteritis is a consideration. MEDICATIONS: Patient is not on any antibiotics. PHYSICAL EXAMINATION: Vital Signs: Temperature is 98.6 degrees, pulse 92, respirations 31, blood pressure 149/49. General: This is a somewhat ill-appearing, elderly female. She is in no acute distress. Head, Eyes, Ears, Nose, and Throat: She can hear my spoken words. She can see near objects. She is not tender in her latter day areas. Lungs: Clear to auscultation. Cardiovascular: Regular heart rate. Abdomen: Soft and nontender. Back: No tenderness. LABORATORY STUDIES AND X-RAYS: A CT scan of the abdomen showed no acute disease. X-ray of the lumbar spine showed no acute disease. Creatinine 0.8. GFR is greater than 60. Blood and urine cultures are negative. Sputum grew normal lex. The patient's CBC today shows a white count of 4960, hemoglobin 12.5, and platelet count 133,000. ASSESSMENT AND PLAN: I have ordered a sedimentation rate. If it is elevated and the patient still has complaints of pain in her temples, especially if the temporal artery feels prominent she may be a candidate to have a temporal artery biopsy. This might establish a diagnosis of temporal arteritis. COMORBIDITIES: She is elderly. She has diabetes mellitus. The patient also was a cigarette smoker, but stopped a year ago. cc: Romaine Shook MD
[2016-10-29] MEDS: DUONEB (A & A) INH SCH ×6 (03:50→23:08)
[2016-10-29] MEDS: HUMALOG SUBQ SCH ×4 (06:48→22:18)
[2016-10-29 06:57] LABS: MANUAL DIFF NEEDED? NO
[2016-10-29 07:03] LABS: BASO% 0.2 % (0.0-0.8); EOS# 0.21 X1000 (0.0-0.7); EOS% 3.9 % (0.0-10.0); HEMOGLOBIN 12.2 g/dL (12.0-16.0); LYMPH# 0.89 X1000 (1.2-3.4); LYMPH% 16.7 % (20.5-51.1); MCH 29.8 PG (27-31); MCHC 33.9 g/dL (33-37); MCV 87.8 FL (81-99); MONO# 0.61 X1000 (0.11-0.59); MONO% 11.4 % (1.7-9.3); MPV 10.5 FL (7.4-10.4); NEUT% 67.8 % (42.2-75.2); PLT 145 X1000 (130-400)
[2016-10-29 07:25] LABS: AGAP 12; BUN 6 mg/dL (8-22); CALCIUM 8.9 mg/dL (8.8-10.2); CHLORIDE 104 mmol/L (98-107); COSMO 286; POTASSIUM 3.6 mmol/L (3.5-5.1); SODIUM 144 mmol/L (136-145); TCO2 28 mmol/L (25-35)
[2016-10-29] MEDS: NS 1,000 ML IV SCH ×3 (08:44→22:17)
[2016-10-29] MEDS: NICODERM PATCH TD SCH (08:53)
[2016-10-29] MEDS: MIRALAX PO SCH ×2 (08:53→20:39)
[2016-10-29] MEDS: ZANTAC PO SCH ×2 (08:54→20:40)
[2016-10-29] MEDS: LOPRESSOR PO SCH (08:55)
[2016-10-29] MEDS: PERCOCET-5 PO SCH ×2 (08:55→20:40)
[2016-10-29] MEDS: PLAVIX PO SCH (08:55)
[2016-10-29] MEDS: LOVENOX SUBQ SCH (09:00)
--- NOTE | 2016-10-29 17:56 | PROGRESS NOTE ---
DATE: 10/29/2016 PRESENT ILLNESS: The patient had fever. The fever has abated. I am uncertain as to its cause. Last night, she had pain in her holiness area, and I was considering the diagnosis of temporal arteritis. However, today she is not having any pain in her temples, and the artery does not feel indurated or palpable. MEDICATIONS: Patient is not on any antibiotic. PHYSICAL EXAMINATION: Vital Signs: Temperature is 98.5 degrees, pulse 84, respirations 25, blood pressure 155/48. General: This is a chronically ill-appearing elderly female. She is in no acute distress. Head, Eyes, Ears, Nose, and Throat: She can hear my spoken words and see near objects. I palpated both holiness areas, and I did not feel an enlarged temporal artery, or tender temporal artery. Neck: No meningismus. Lungs: Clear to auscultation. Cardiovascular: Regular heart rate. Abdomen: Soft and nontender. Extremities: When I moved her legs tonight, she was not having pain. LABORATORIES AND X-RAYS: The patient's CBC today shows a white count of 5340, hemoglobin 12.2, and platelet count 145,000. Sedimentation rate is 48. Blood and urine cultures are sterile. Sputum is growing normal lex. Creatinine is 0.8. ASSESSMENT AND PLAN: I think now since the patient is not having pain in her holiness areas, and since and I do not feel an enlarged temporal artery, and the sedimentation rate is not as high as I would expect for temporal arteritis, I doubt that she has holiness arteritis. Because of the surgery she has had, she it is susceptible to getting urinary tract infections. At this time, I do not find a definite infection in the patient. My plan right now would be not to give her any antibiotics. The patient said that she was told by another physician to stay on a low dose of an antibiotic chronically. I am not sure if this would help the patient or not. It only might just result in the patient becoming resistant with that antibiotic. At this time, I probably would not do that. COMORBIDITIES: She is elderly. She has diabetes. She is a cigarette smoker, who stopped a year ago. From an Infectious Disease point of view, I do not think the patient needs any antibiotics at this time. Thank you for allowing me to see the patient. I am available to see her on a p.r.n. basis. [facility]#: [id number] cc: Romaine Shook MD
[2016-10-29] MEDS: MORPHINE IV PRN (18:19)
--- NOTE | 2016-10-29 18:51 | PROGRESS NOTE ---
DATE: 10/29/2016 SUBJECTIVE: This patient looks much better today. She is still complaining of right hip pain. I talked to her and her daughter about osteoarthritis and they seem to understand. Probably this hip has to be replaced. The erythrocyte sedimentation rate is a little bit elevated but I do not think this patient has temporal arteritis. Also, we have a previous result for a few days ago that showed that the erythrocyte sedimentation rate was around 20. For now I am not going to ask for any biopsy. OBJECTIVE: Vital Signs: Temperature 98.5 degrees, pulse 84, respiratory rate 25, blood pressure 155/48, O2 saturation 99 on 2 L of nasal cannula. HEENT: Head normocephalic. No trauma. PERRLA. Neck: Supple. No JVD. No masses. Central trachea. Chest: Clear to auscultation. No wheezing. No rales. Cardiovascular: RRR. Abdomen: Right upper quadrant and epigastric discomfort. Positive bowel sounds. Extremities: No edema. No clubbing. No cyanosis. Neurological: The patient is alert and oriented x3. No focal deficits. She has a right hip pain to palpation on mobilization. LABORATORY: WBC 5.3, hemoglobin 12.2, hematocrit 36, platelets 145,000. Sodium 144, potassium 3.6, chloride 104, bicarbonate 28, BUN 6, creatinine 0.8, glucose 123, calcium 8.9, magnesium 1.6. ASSESSMENT AND PLAN: 1. Fever of unknown origin. She has been 48 hours without fever. Probably that was related to a viral infection. Infectious Disease Department is following this patient and they are not recommending antibiotics. Apparently the patient was told that she should be on long-term antibiotics but I disagree with that. 2. Abdominal pain. Ultrasound and a CT scan of the abdomen did not show any abnormality. The abdominal pain is much better. We will monitor. 3. COPD without exacerbation. We will monitor. 4. Right hip pain secondary to osteoarthritis. This patient should follow up with Orthopedic Surgery as an outpatient. 5. Type 2 diabetes. Continue with sliding scale and pattern of blood sugar. 6. Mild renal insufficiency. Stable. 7. Paroxysmal atrial fibrillation. Currently in sinus rhythm. Continue with home medication. 8. Atypical chest pain. No chest pain today. Cardiac enzymes have been negative. 9. Deep vein thrombosis prophylaxis with Lovenox. cc: Eugene King MD
[2016-10-29] MEDS: ATIVAN PO SCH (20:40)
[2016-10-30] MEDS: CARAFATE PO SCH ×3 (02:20→12:02)
[2016-10-30] MEDS: DUONEB (A & A) INH SCH ×3 (02:50→11:34)
[2016-10-30] MEDS: MORPHINE IV PRN (06:14)
[2016-10-30] MEDS: HUMALOG SUBQ SCH ×2 (06:18→11:45)
[2016-10-30] MEDS: PERCOCET-5 PO SCH (08:44)
[2016-10-30] MEDS: PLAVIX PO SCH (08:44)
[2016-10-30] MEDS: NICODERM PATCH TD SCH (08:45)
[2016-10-30] MEDS: ZANTAC PO SCH (08:45)
[2016-10-30] MEDS: MIRALAX PO SCH (08:46)
[2016-10-30] MEDS: LOVENOX SUBQ SCH (08:48)
[2016-10-30] MEDS: LOPRESSOR PO SCH (08:53)
[2016-10-30] MEDS: NS 1,000 ML IV SCH (11:32)
[2016-10-30 12:25] VITALS: BP 144/54
--- NOTE | 2016-10-31 12:38 | DISCHARGE SUMMARY ---
ADMISSION DATE: 10/25/2016 DISCHARGE DATE: 10/30/2016 DISCHARGE DIAGNOSES: 1. Fever of unknown origin/possible vital syndrome. 2. Abdominal pain, resolved. 3. Chronic obstructive pulmonary disease without exacerbation. 4. Right hip pain secondary to osteoarthritis. 5. Type 2 diabetes. 6. Kidney injury. 7. Paroxysmal atrial fibrillation. 8. Atypical chest pain. CONSULTS: Infectious Disease Department and Orthopedic Surgery Department. HOSPITAL COURSE: 80-year-old, female with a past medical history of tobacco abuse, type 2 diabetes, COPD, history of TIAs, hypertension, hyperlipidemia, paroxysmally atrial fibrillation arthritis, came to the emergency department and was admitted on 10/25/2016. She was complaining of right lower extremity pain that began that morning around midnight. This pain woke her up out of her sleep. The pain was radiated to her right leg and back. Also she reports some abdominal discomfort or nausea but no vomiting and some mild shortness of breath but no exertional type of anginal. Vital signs: At the moment of admission this patient was tachycardic and she had a fever of 101.6 and her lactic acid was 1.5. However she had significant right upper quadrant tenderness and given her fever and abdominal pain this patient was admitted for further treatment and evaluation. We asked for a CT scan of the abdomen and ultrasound of the right upper quadrant that did show any acute abnormality. The fever lasted for about 2 days, with no antibiotics. We did not have any source of infection. The right hip pain was secondary to osteoarthritis. Orthopedic Surgery evaluated this patient and they will follow up this patient after discharge summary. Infectious Disease Department evaluated this patient as well. They did not recommend any kind of antibiotics. The patient spent 3 days without fever. We were concerned about the possibility of temporal arteritis but the erythrosedimentation rate at the beginning was 20 and then 48, so we were not concerned about this and she initially was complaining of headache but not anymore. All the instructions were explained in detail to the patient and her daughter. They seem to understand. PHYSICAL EXAM: Temperature 98.2 degrees, pulse 82, respiratory rate 18, blood pressure 144/54, oxygen saturation 99 on 2 L of nasal cannula. HEENT: Head normocephalic. No trauma. PERRLA. Neck: Supple. No JVD. No masses. Central trachea. Chest: Clear to auscultation. No wheezing. No rales. Cardiovascular: RRR. Abdomen: Soft, mild tenderness to palpation at the level of the right upper quadrant. No rebound. Extremities: No edema. No clubbing. No cyanosis. Right hip pain with palpation and mobilization. Neurological examination: The patient is alert and oriented x3. She moves all 4 extremities. LABORATORY: Glucose 139. FOLLOWUP: Followup by Dr. Vidal in 1-2 weeks and also followup by her primary care doctor in 1 week. DISCHARGE MEDICATIONS: Metoprolol succinate 25 mg p.o. daily, Plavix 75 mg p.o. daily, ranitidine 150 mg twice a day, Sucralfate 1 g p.o. every 6 hours, gabapentin 100 mg p.o. twice a day as needed , fenofibrate 160 mg p.o. daily, insulin lispro sliding scale, MiraLAX 17 g p.o. twice a day, lorazepam 1 mg at bedtime, Robaxin 500 mg p.o. as needed and Percocet 5 mg 1 tablet p.o. twice a day as needed. Time discharging this patient: 35 minutes cc: Eugene King MD MTDD
== END 2016-10-30 12:54 | disposition home or self-care (01) ==
LOC: ED 06:48 → 3N 11:51
PROVIDERS: ATTEND Internal Medicine

== ENCOUNTER 2016-12-09 12:00 | Inpatient (IN) ==
[2016-12-09] MEDS ORDERED: DUONEB (A & A) INH ONE (12:20)
[2016-12-09] MEDS ORDERED: SOLU-MEDROL IV ONE (12:21)
[2016-12-09 12:39] LABS: MANUAL DIFF NEEDED? NO
[2016-12-09 12:45] LABS: BE -0.7 mmoll (-3.0-3.0); BLOOD TYPE ARTERIAL; DRAW SITE R RADIAL; METHB 1.2 % (0.0-1.5); O2(CT) 18.5 mL/dL (15.0-23.0); PCO2(98.6) 36 mmHg (35-45); PO2(98.6) 69 mmHg (60-100); SAMPLE BLOOD; SAO2 96.4 % (95.0-100.0); THB 14.2 g/dL (11.5-17.4); pH(98.6) 7.42 (7.35-7.45)
[2016-12-09 12:48] LABS: ALLEN TEST YES; MODALITY ROOM AIR
[2016-12-09 12:51] LABS: BASO% 0.2 % (0.0-0.8); EOS# 0.06 X1000 (0.0-0.7); EOS% 1.1 % (0.0-10.0); HEMOGLOBIN 14.1 g/dL (12.0-16.0); IMM GRAN# 0.01 X1000 (0.0-0.04); IMM GRAN% 0.2 % (0.0-0.5); LYMPH# 1.02 X1000 (1.2-3.4); LYMPH% 19.1 % (20.5-51.1); MCH 29.7 PG (27-31); MCHC 34.4 g/dL (33-37); MCV 86.5 FL (81-99); MONO# 0.49 X1000 (0.11-0.59); MONO% 9.2 % (1.7-9.3); MPV 9.9 FL (7.4-10.4); NEUT% 70.2 % (42.2-75.2); PLT 146 X1000 (130-400); RBC 4.74 XMIL (4.2-5.4)
--- NOTE | 2016-12-09 12:53 | EKG Report ---
Test Performed on : 12/09/2016 12:12:26 PM Test Reason : Chest Pain Blood Pressure : / mmHG Vent. Rate : 107 BPM Atrial Rate : 107 BPM P-R Int : 162 ms QRS Dur : 076 ms QT Int : 320 ms P-R-T Axes : 079 -54 071 degrees QTc Int : 427 ms Sinus tachycardia. Possible Left atrial enlargement Left axis deviation Abnormal ECG When compared with ECG of 04-DEC-2016 09:01, premature ventricular complexes. are no longer present Vent. rate has increased BY 55 BPM Nonspecific T wave abnormality no longer evident in Inferior leads Unconfirmed Result
[2016-12-09 12:54] LABS: INR 0.92 (0.86-1.15); PROTIME 13.1 Seconds (12.1-15.5)
[2016-12-09 12:57] LABS: CALCIUM 9.5 mg/dL (8.8-10.2); MAGNESIUM 1.7 mg/dL (1.5-2.7); POTASSIUM 3.8 mmol/L (3.5-5.1); TOTAL BILIRUBIN 0.3 mg/dL (0.20-1.00)
[2016-12-09] MEDS ORDERED: LEVAQUIN 750 MG/D5W 750 MG/150 ML IVPB IV ONE (13:11)
[2016-12-09] MEDS ORDERED: ZITHROMAX 500 MG/NS 500 MG/250 ML IVPB IV ONE (13:12)
--- NOTE | 2016-12-09 13:12 | Diag Imaging Result Doc PS360 ---
EXAM: CHEST-PORTABLE HISTORY: sob/cp TECHNIQUE: Portable AP COMPARISON: 10/25/2016 FINDINGS: The lungs are well expanded. The heart is not enlarged. The vessels are not distended. No pneumonia. No pleural effusions identified. IMPRESSION: Negative chest. Electronically signed by Goran Hercules 12/09/2016 1:09 PM
[2016-12-09] MEDS ORDERED: TYLENOL PO PRN (13:14)
[2016-12-09] MEDS ORDERED: NS 1,000 ML IV ONE (13:14)
[2016-12-09] MEDS ORDERED: DILAUDID ONE (13:33)
--- NOTE | 2016-12-09 13:34 | PROVIDER DOCUMENTATION ---
This chart was entered by Raquel Carney Scribe, acting as scribe for Pepe Lin MD. HPI-Respiratory General - General Chief Complaint: Shortness of Breath Stated Complaint: SOB/NAUSEA Time Seen by Provider: 12/09/16 12:06 Source: patient, family (daughter) Allergies/Adverse Reactions: Patient Allergies Allergy/AdvReac Type Severity Reaction Status Date / Time onion Allergy NAUSEA/VOMI Verified 10/25/16 06:57 TING Penicillins Allergy HIVES Verified 10/25/16 06:57 acetaminophen [From Tylenol] AdvReac NAUSEA/VOMI Verified 10/25/16 06:57 TING aspirin AdvReac DIARRHEA Verified 10/25/16 06:57 carrot AdvReac NAUSEA/VOMI Verified 10/25/16 06:57 TING codeine AdvReac NAUSEA Verified 10/25/16 06:57 Home Medications: Home Medication List Medication Instructions Recorded Confirmed Last Taken Type Clopidogrel [Plavix] 75 mg PO DAILY #0 tablet 06/04/14 12/04/16 12/01/16 Rx Fenofibrate 160 mg PO DAILY 10/25/16 12/04/16 1 Day Ago History Gabapentin 100 mg PO BID PRN PRN 10/25/16 12/04/16 Unknown History Insulin Lispro [Humalog] 0 unit SQ DIRECTED 10/25/16 12/04/16 1 Day Ago History Ranitidine [Zantac] 150 mg PO DAILY 10/25/16 12/04/16 Unknown History Polyethylene Glycol 3350 [Miralax] 17 gm PO BID 10/27/16 12/04/16 Unknown History Lorazepam 1 mg PO QHS #30 tablet 10/30/16 12/04/16 Unknown Rx Methocarbamol [Robaxin] 500 mg PO PRN PRN #20 tablet 10/30/16 12/04/16 Unknown Rx Albuterol [Albuterol Neb] 2.5 mg INH Q4H PRN PRN 12/04/16 12/04/16 Unknown History Metoprolol Tartrate 25 mg PO DAILY 12/04/16 12/04/16 Unknown History Naloxegol Oxalate [Movantik] 25 mg PO DAILY 12/04/16 12/04/16 Unknown History Ondansetron HCl [Zofran] 8 mg PO PRN PRN 12/04/16 12/04/16 Unknown History Sucralfate [Carafate] 1 gm PO QAM 12/04/16 12/04/16 Unknown History - History of Present Illness-Resp Nature of Presenting Problem: Pt is 80 y/o F presents to the ED with SOB. Pt states cough with sputum. Pt states symptoms have been present for 2 wks. Pt states N and denies V. Pt states hx of COPD. Pt states smoke hx of 62 yr. Pt states seeing urgent care recently and was prescribed antibiotics. Quality of Pain: reports: tightness Severity in ED: reports: moderate Onset/Duration: reports: other (2 wks) Timing: reports: still present, getting worse Exposure: reports: unknown cause Cough Quality/Degree: reports: moderate, sputum Episode Frequency: frequent episodes Current Respiratory Medication Therapy: Initiated see nurses note Modifying Factors: improves with: nothing Associated Symptoms: reports: cough, nasal congestion, nasal drainage, shortness of breath, other (nausea). denies: chest pain/soreness, dizziness, earache, facial pain, fever/chills, flu-like symptoms, headache, heart racing, hurts to breathe, hyperventilating, lightheadedness, muscle/bodyaches, sinus pain, short of breath, sore throat, sweaty, wheezing Similar Symptoms Previously?: Yes Recently seen or treated by another doctor?: Yes (Urgent Care ) Review of Systems - Adult - REVIEW OF SYSTEMS - ADULT Constitutional: denies: chills, fever Eyes: denies: blurred vision, double vision, redness Ears, Nose, Mouth & Throat: reports: sinus problem (congestion and drainage). denies: ear pain, nose pain, throat pain Cardiovascular: reports: irregular heart rate (tachy). denies: chest pain, heart murmur, palpitations Respiratory: reports: cough, shortness of breath. denies: wheezing Gastrointestinal: reports: nausea. denies: abdominal pain, diarrhea, vomiting Genitourinary: denies: dysuria, hematuria, urinary retention Musculoskeletal: denies: bone pain, joint pain, neck pain Integumentary: denies: hives, itching, rash Neurological: denies: dizziness/vertigo, headache/migraines, numbness Psychiatric: denies: anxiety, depression, insomnia Endocrine: reports: no symptoms reported Hematologic/Lymphatic: reports: no symptoms reported Allergic/Immunologic: reports: no symptoms reported All Other Systems: Reviewed and Negative Past History - Adult - PAST MEDICAL HISTORY-ADULT Review of Records: reports: Nursing Assessment Review, Medications Reviewed, Social history reviewed & non-contributory. Major Childhood Illnesses: reports: denies history Cardiovascular: reports: CAD, HTN Respiratory: reports: COPD Gastrointestinal: reports: denies history Obstetrical/Gynecological: reports: denies history Genitourinary: reports: denies history Musculoskeletal: reports: arthritis Neurological: reports: denies history Endocrine/Immune: reports: Diabetes Other Conditions: reports: denies history - PRIOR SURGERIES/PROCEDURES Surgical/Procedure History: reports: cholecystectomy, hysterectomy, other ( cataract surgrey) - PRIOR HOSPITALIZATIONS Prior Hospitalizations: reports: none - IMMUNIZATION STATUS Childhood Immunizations: See Nurse Assessment Flu Vaccine: See Nurse Assessment - FAMILY HISTORY Family History: reviewed, not pertinent - SOCIAL HISTORY Smoking: cigarettes, less than 1 pack/day Provider spent 3-5 mins advising pt. on dangers of tobacco.: Discussed manners to quit use, and f/u contacts for add'l counseling. Substance Use: denies Living Situation: family Physical Exam-General - PHYSICAL EXAM-ADULT Initial Vital Signs Reviewed: Yes - CONSTITUTIONAL General Appearance: alert, no apparent distress - EYES Eyes: PERRL/EOMI, pink conjunctivae - HEAD, EARS, NOSE, MOUTH & THROAT HENMT: normocephalic/atraumatic, moist mucous membranes, normal ENT inspection - NECK Neck: non-tender, normal inspection - RESPIRATORY Respiratory: chest non-tender, rales (bilateral), rhonchi (bilateral), increased rate - CARDIOVASCULAR Cardiovascular: normal peripheral pulses, tachycardia - GASTROINTESTINAL (ABDOMEN) Abdominal Exam: normal bowel sounds, non tender, soft - LYMPHATIC Lymphatic: no adenopathy - MUSCULOSKELETAL Back Exam: normal inspection Extremity: normal range of motion, normal inspection - SKIN Integumentary: normal color, normal turgor, warm/dry - NEUROLOGIC Neurologic: grossly normal - PSYCHIATRIC Psych/Mental Status: normal mood/affect, oriented x 3 Progress - PLAN OF CARE/RESULTS Progress/Plan/Lab Results: Vital Signs - 8 hr 12/09/16 12:04 12/09/16 12:24 Temperature 98 F Pulse Rate 120 H 106 H Respiratory Rate 24 28 H Blood Pressure 134/78 O2 Sat by Pulse Oximetry 95 94 L Laboratory Results - last 24 hr 12/09/16 12/09/16 12/09/16 12:22 12:30 12:30 WBC 5.35 RBC 4.74 Hgb 14.1 Hct 41.0 MCV 86.5 MCH 29.7 MCHC 34.4 RDW Std Deviation 13.4 Plt Count 146 MPV 9.9 Immature Gran % (Auto) 0.2 Neut % (Auto) 70.2 Lymph % (Auto) 19.1 L Peach % (Auto) 9.2 Eos % (Auto) 1.1 Baso % (Auto) 0.2 Immature Gran # (Auto) 0.01 Neut # (Auto) 3.76 Lymph # (Auto) 1.02 L Peach # (Auto) 0.49 Eos # (Auto) 0.06 Baso # (Auto) 0.01 PT INR APTT (Factor Assay) Specimen Type ARTERIAL Sample Site R RADIAL pH 7.42 pCO2 36 pO2 69 HCO3 24.2 Base Excess -0.7 Oxyhemoglobin 92.5 L ABG O2 Sat (Calculated) 18.5 ABG O2 Saturation 96.4 ABG Carboxyhemoglobin 2.80 H ABG Methemoglobin 1.2 Abdoul Test YES A-a O2 Difference 36.0 Total Hemoglobin 14.2 Lactate 2.70 H Blood Gas Modality ROOM AIR FiO2 % 21.0 Sodium 134 L Potassium 3.8 Chloride 99 Carbon Dioxide 25 Anion Gap 10 BUN 17 Creatinine 1.0 H Estimated GFR/1.73 m2 53 BUN/Creatinine Ratio 17 Glucose 330 H Calculated Osmolality 283 Calcium 9.5 Magnesium 1.7 Total Bilirubin 0.30 AST 18 ALT 16 Alkaline Phosphatase 48 Creatine Kinase 24 Troponin T [id number] Pept Total Protein 7.0 Albumin 4.0 Globulin 3.0 Albumin/Globulin Ratio 1.0 12/09/16 12/09/16 12/09/16 12:30 12:30 12:30 WBC RBC Hgb Hct MCV MCH MCHC RDW Std Deviation Plt Count MPV Immature Gran % (Auto) Neut % (Auto) Lymph % (Auto) Peach % (Auto) Eos % (Auto) Baso % (Auto) Immature Gran # (Auto) Neut # (Auto) Lymph # (Auto) Peach # (Auto) Eos # (Auto) Baso # (Auto) PT 13.1 INR 0.92 APTT (Factor Assay) 32.0 Specimen Type Sample Site pH pCO2 pO2 HCO3 Base Excess Oxyhemoglobin ABG O2 Sat (Calculated) ABG O2 Saturation ABG Carboxyhemoglobin ABG Methemoglobin Abdoul Test A-a O2 Difference Total Hemoglobin Lactate Blood Gas Modality FiO2 % Sodium Potassium Chloride Carbon Dioxide Anion Gap BUN Creatinine Estimated GFR/1.73 m2 BUN/Creatinine Ratio Glucose Calculated Osmolality Calcium Magnesium Total Bilirubin AST ALT Alkaline Phosphatase Creatine Kinase Troponin T < 0.010 Hvp-M-Fevxekogcwt Pept 57 Total Protein Albumin Globulin Albumin/Globulin Ratio Orders Category Date Time Status Cardiac Monitoring DIRECTED Care 12/09/16 12:19 Active IV Insertion ORDERED Care 12/09/16 12:21 Completed Oxygen Therapy- ED Nursing DIRECTED Care 12/09/16 12:19 Active Saline Loc NOW Care 12/09/16 12:19 Active CHEST-PORTABLE [RAD] Stat Exams 12/09/16 12:20 Taken ABG [RESP] Routine Lab 12/09/16 12:22 Completed CBC WITH ELECTRONIC DIFF [HEME] Stat Lab 12/09/16 12:30 Completed CK PROFILE [SP CHEM] Stat Lab 12/09/16 12:30 Completed COMPREHENSIVE METABOLIC PANEL [CHEM] Stat Lab 12/09/16 12:30 Completed MAGNESIUM [CHEM] Stat Lab 12/09/16 12:30 Completed PRO B-NATRIURETIC PEPTIDE Stat Lab 12/09/16 12:30 Completed [address]IME WITH INR PL [COAG] Stat Lab 12/09/16 12:[address] [COAG] Stat Lab 12/09/16 12:30 Completed TROPONIN T Stat Lab 12/09/16 12:30 Completed Albuterol 2.5MG/Ipratrop 0.5MG [Duoneb (A & A)] Med 12/09/16 12:20 Discontinued 3 ml INH NOW ONE Methylprednisolone Sod Succ [Solu-Medrol] Med 12/09/16 12:21 Discontinued 125 mg IV NOW ONE Aerosol Treatments Routine Oth 12/09/16 12:20 Active Aerosol Treatments Stat Oth 12/09/16 12:20 Active EKG [EKG] Stat Ther 12/09/16 12:19 Draft Result Diagrams: 12/09/16 12:30 12/09/16 12:30 - EKG 1 Time of EKG reading by physician:: 12:12 EKG Read and Signed by:: Pepe Lin EKG Interpretation (*Must complete 3 of following elements*): Abnormal Rate: 107 Rhythm: sinus tachycardia Comments: possible left atrial enlargement; left axis deviation - XRAY 1 XRAY Study: Chest Impression: Normal XRAY Interpretation: negative chest - CONSULTS/PCP/HOSPITALIST Notification #1 *Consult/PCP/Hospitalist*: Dr. Brown Time Discussed: 13:11 (Dr. Brown accepted admit ) Reason/Comments: Dr. iLn consulted with Dr. Brown about Pt Consult Disposition: Admit Departure - Departure Date of Disposition Decision: 12/09/16 Time of Disposition Decision: 13:11 DIAGNOSIS: COPD exacerbation Disposition: ADMITTED INPATIENT 09 Certified Medical Emergency: Emergent Condition: Stable Referrals and Follow-Ups: Rodrigo Brown MD [Primary Care Provider] - - Critical Care Note This patient required my direct & personal management of CC.: No This chart was documented by the indicated scribe, (Raquel Carney, [place]) and accurately reflects the services I performed and decisions made by me, Pepe Lin MD, as attested by the provider's signature.
[2016-12-09] MEDS: DILAUDID IM PRN ×3 (13:39→23:15)
[2016-12-09] MEDS ORDERED: DUONEB (A & A) INH SCH (15:30)
[2016-12-09] MEDS: ZOFRAN IV PRN ×2 (15:36→21:04)
[2016-12-09] MEDS ORDERED: ZOFRAN ODT PO PRN (16:49)
[2016-12-09] MEDS ORDERED: ATIVAN PO PRN (16:49)
[2016-12-09] MEDS ORDERED: ROBAXIN PO PRN (16:49)
[2016-12-09] MEDS ORDERED: DUONEB (A & A) INH PRN (16:51)
[2016-12-09] MEDS: CARAFATE PO SCH ×2 (17:25→20:38)
--- NOTE | 2016-12-09 19:40 | HISTORY AND PHYSICAL ---
PRIMARY CARE PHYSICIAN: Dr. Rodrigo Brown. CHIEF COMPLAINT: Shortness of breath. HISTORY OF PRESENT ILLNESS: This is an 80-year-old female with a history of COPD, nicotine dependence, hypertension, hyperlipidemia, paroxysmal atrial fibrillation, and type 2 diabetes. She presents to the emergency room complaining of increased shortness of breath as well as nausea. She states that shortness of breath started about 2 weeks ago and she was seen at an urgent care clinic and prescribed antibiotics, reportedly being treated for pneumonia although she states no chest x-ray was performed. She states she has had no change in the shortness of breath. She denies fever, chills. She does state that she has a cough that is nonproductive, a stuffy nose, and dyspnea on exertion. She is lying flat in bed at the time of the interview. She denies any PND or orthopnea. She complains of persistent nausea that she states has been present for about 2 years. She has had no change in the nausea. She has had no vomiting. No diarrhea, constipation, abdominal pain. She does state that the nausea will increase and she will develop some epigastric pain shortly after eating and after an hour or 2 it seems that this pain will subside somewhat. But once again, this has been present for about 2 years. She has seen Dr. Phelan and in fact, she has an appointment for in the morning for follow up, having received, it looks like, Carafate from him. She is unable to tell if she had a change in symptoms from his medical regimen. Chest x-ray revealed a negative chest. She is afebrile. PAST MEDICAL HISTORY: 1. COPD. 2. Persistent nausea and epigastric pain. 3. Nicotine dependence. 4. Hypertension. 5. Hyperlipidemia. 6. Paroxysmal atrial fibrillation. 7. Diabetes type 2. PAST SURGICAL HISTORY: D C, bladder sling, bladder mesh, back surgery, bilateral oophorectomy, cholecystectomy. SOCIAL HISTORY: She smokes a pack a day. She is . She lives in [place] by herself but she does have children close that participate in her care. REVIEW OF SYSTEMS: A 14 point review of systems was discussed with the patient with pertinent positives stated in HPI. She denied chest pain, palpitations, dizziness, syncope, PND, orthopnea, productive cough, fever, body aches, chills, any vomiting, diarrhea, constipation, black or bloody vomitus, black or bloody stools, hematuria, dysuria, frequency, urgency. MEDICATIONS: Were verified with her pharmacy. Oxycodone 7.5 one q.12 hours, lorazepam 0.5 q.6 hours p.r.n., diclofenac sodium 50 mg t.i.d., albuterol nebulizers q.4 hours p.r.n., Humalog as directed, Movantik 25 mg daily, MiraLAX 17 g b.i.d., lorazepam 1 mg at bedtime, Robaxin 500 mg p.r.n., fenofibrate 160 daily, metoprolol tartrate 25 daily, Plavix 75 mg daily, Zantac 150 daily, Zofran 8 mg p.r.n., Carafate 1 g 4 times a day. PHYSICAL EXAMINATION: GENERAL: This is an 80-year-old female who is lying in the bed flat, in no distress. VITAL SIGNS: Blood pressure is 132/60, with a heart rate of 93, respirations are 21, temperature is 98.6 degrees oral with oxygen saturations of 95 to 97% on 2 L nasal cannula. HEENT: Head is normocephalic, atraumatic. Pupils equal, round, react to light. EOMs are intact. Sclerae are anicteric. Mucous membranes are moist. NECK: Supple with trachea midline. CARDIOVASCULAR: Regular rate and rhythm. S1 and S2 are noted. No murmurs. PULMONARY: She is diminished throughout with prolonged expiration. She does have some scattered rhonchi. GASTROINTESTINAL: Abdomen is soft, nontender, nondistended with bowel sounds in all 4 quadrants. EXTREMITIES: No clubbing, cyanosis, or edema. Pulses are palpable x4. Calves nontender. NEUROLOGIC: She is awake, alert, and oriented to person and family. She does get confused to place, time of day, and she does have some difficulty answering questions if you ask for details. She will answer all questions yes or no but most of the time she is unable to explain. DIAGNOSTICS: Chest x-ray revealed a negative chest. Lungs are well expanded. Heart is not enlarged. Vessels are not distended. No pneumonia. No pleural effusions. LABS: WBC is 5.3, with hemoglobin 14.1, hematocrit 41.0, and platelets of 146,000. Sodium is 134, potassium 3.8, BUN 17, creatinine 1, with a glucose of 330. Troponin is negative. Her magnesium is 1.7. ASSESSMENT: 1. Chronic obstructive pulmonary disease with mild exacerbation. 2. Reported recent diagnoses of pneumonia. 3. Coronary artery disease. 4. Hypertension. 5. Diabetes mellitus. 6. Persistent nausea with epigastric pain. 7. Continued tobacco use and abuse. 8. Deep vein thrombosis and gastrointestinal prophylaxis. PLAN: She will be admitted to the hospital. Placed on telemetry. We will identify her home medications and continue as appropriate. We will give DuoNeb q.4 hours and q.2 hours p.r.n. Pattern blood glucose with sliding scale insulin. We will continue her antihypertensives. We will continue her Carafate. For DVT prophylaxis we will use Lovenox and GI prophylaxis Prilosec. Further treatments pending hospital course. Dictated by JEFF Howe for Rodrigo Brown MD cc: JEFF Howe MD
[2016-12-09] MEDS: DUONEB (A & A) INH SCH ×2 (20:01→23:10)
[2016-12-09] MEDS: ATIVAN PO SCH (20:38)
[2016-12-09] MEDS: MIRALAX PO SCH (20:38)
[2016-12-09] MEDS: HUMALOG DOSE (PARKWAY) SUBQ SCH (20:39)
[2016-12-10] MEDS: DUONEB (A & A) INH SCH ×6 (03:29→23:29)
[2016-12-10] MEDS: DILAUDID IM PRN ×3 (03:45→20:08)
[2016-12-10] MEDS: NS 1,000 ML IV SCH ×2 (05:53→10:06)
[2016-12-10 06:33] LABS: HEMATOCRIT 36.9 % (37.0-47.0); HEMOGLOBIN 12.4 g/dL (12.0-16.0); MCH 29.1 PG (27-31); MCHC 33.6 g/dL (33-37); MCV 86.6 FL (81-99); MPV 10.8 FL (7.4-10.4); RBC 4.26 XMIL (4.2-5.4)
[2016-12-10] MEDS: PRILOSEC PO SCH (06:39)
[2016-12-10] MEDS: CARAFATE PO SCH ×4 (06:40→20:07)
[2016-12-10] MEDS: MOVANTIK PO SCH (06:40)
[2016-12-10] MEDS: HUMALOG DOSE (PARKWAY) SUBQ SCH ×4 (06:41→21:15)
[2016-12-10 06:42] LABS: CALCIUM 9.4 mg/dL (8.8-10.2)
[2016-12-10] MEDS ORDERED: TYLENOL PO PRN (07:58)
[2016-12-10] MEDS ORDERED: DUONEB (A & A) INH PRN (07:58)
[2016-12-10] MEDS: LEVAQUIN 500 MG/D5W 500 MG/100 ML IVPB IV SCH (08:43)
[2016-12-10] MEDS: LANTUS INSULIN (PARKWAY) SUBQ SCH (08:44)
[2016-12-10] MEDS: SOLU-MEDROL IV SCH ×2 (08:44→16:16)
[2016-12-10] MEDS: DOXYCYCLINE 100 MG in NS 250 ML IV SCH ×3 (08:44→21:16)
[2016-12-10] MEDS: MIRALAX PO SCH ×3 (08:45→20:09)
[2016-12-10] MEDS: LOPRESSOR PO SCH (08:45)
[2016-12-10] MEDS: PLAVIX PO SCH (08:45)
[2016-12-10] MEDS: LOVENOX SUBQ SCH (08:45)
[2016-12-10] MEDS: ZANTAC PO SCH (08:46)
[2016-12-10] MEDS: ZOFRAN IV PRN ×2 (09:09→20:09)
[2016-12-10] MEDS: ATIVAN PO SCH (20:06)
[2016-12-11] MEDS: SOLU-MEDROL IV SCH ×2 (00:48→08:28)
[2016-12-11] MEDS: DUONEB (A & A) INH SCH ×6 (03:53→23:51)
[2016-12-11] MEDS: DILAUDID IM PRN ×3 (04:41→16:40)
[2016-12-11] MEDS: ZOFRAN IV PRN ×2 (04:41→16:40)
[2016-12-11] MEDS: MOVANTIK PO SCH (06:17)
[2016-12-11] MEDS: CARAFATE PO SCH ×5 (06:17→21:00)
[2016-12-11] MEDS: NS 1,000 ML IV SCH (06:17)
[2016-12-11] MEDS: PRILOSEC PO SCH (06:17)
[2016-12-11] MEDS: HUMALOG DOSE (PARKWAY) SUBQ SCH ×4 (06:19→21:10)
[2016-12-11] MEDS ORDERED: PRILOSEC PO SCH (07:00)
[2016-12-11] MEDS: LOPRESSOR PO SCH (08:27)
[2016-12-11] MEDS: LANTUS INSULIN (PARKWAY) SUBQ SCH (08:27)
[2016-12-11] MEDS: ZANTAC PO SCH (08:27)
[2016-12-11] MEDS: PLAVIX PO SCH (08:27)
[2016-12-11] MEDS: LEVAQUIN 500 MG/D5W 500 MG/100 ML IVPB IV SCH (08:28)
[2016-12-11] MEDS: LOVENOX SUBQ SCH (08:28)
[2016-12-11] MEDS: MIRALAX PO SCH ×2 (08:28→21:01)
[2016-12-11] MEDS: DOXYCYCLINE 100 MG in NS 250 ML IV SCH ×2 (10:36→21:07)
[2016-12-11] MEDS ORDERED: NS 1,000 ML IV SCH (14:20)
--- NOTE | 2016-12-11 15:27 | PROGRESS NOTE ---
DATE: 12/11/2016 SUBJECTIVE: This patient states that she is feeling much better. She is still complaining of shortness of breath. She is still coughing up yellowish phlegm. She denies nausea, vomiting, constipation, chest pain, or headache. OBJECTIVE: Vital Signs: Temperature 98.1 degrees, pulse 58, respiratory rate 16, blood pressure 164/52, oxygen saturation 98 on 2 L of nasal cannula. HEENT: Head normocephalic. No trauma. PERRLA. Neck: Supple. No JVD. No masses. Central trachea. Chest: Decreased breath sounds globally. Prolonged expiratory phase, with expiatory wheezing. Abdomen: Soft, nontender, nondistended. No hepatosplenomegaly. Extremities: No edema. No clubbing. No cyanosis. Neurological: The patient is alert and oriented x3. No focal neurological deficits. LABORATORY STUDIES: No lab work done today. Glucose 223. ASSESSMENT AND PLAN: 1. Chronic obstructive pulmonary disease exacerbation. Continue with the breathing treatment, oxygen, pulmonary toilet, nebulizer, and steroids. I will decrease the dose of methylprednisolone from 60 mg q.8 hours to 40 mg q.12 hours. 2. Reported recent diagnosis of pneumonia. This patient is on doxycycline. I will continue with the same treatment. 3. Coronary artery disease. Aware. She is not complaining of chest pain. 4. Hypertension. Continue with the same management. Stable. 5. Type 2 diabetes. Her glucose has been elevated. Probably, this is related to steroids as well. I will increase her dose of Lantus from 10 to 20. 6. Persistent nausea and epigastric pain. This is getting much better. She is not complaining of nausea at this moment. 7. Tobacco abuse. This patient has been highly advised against tobacco use. I will continue with daily cessation education. 8. Deep vein thrombosis prophylaxis. Continue with Lovenox. 9. Gastrointestinal prophylaxis. This patient is on a proton pump inhibitor. cc: Eugene King MD
[2016-12-11] MEDS ORDERED: SOLU-MEDROL IV SCH (20:00)
[2016-12-11] MEDS: ATIVAN PO SCH (21:00)
[2016-12-11] MEDS: MONISTAT 7 VAG SCH (21:01)
[2016-12-12] MEDS: DUONEB (A & A) INH SCH ×6 (04:33→22:42)
[2016-12-12 06:06] LABS: MANUAL DIFF NEEDED? NO
[2016-12-12 06:15] LABS: HEMATOCRIT 37.6 % (37.0-47.0); HEMOGLOBIN 12.6 g/dL (12.0-16.0); IMM GRAN# 0.01 X1000 (0.0-0.04); IMM GRAN% 0.1 % (0.0-0.5); LYMPH# 1.13 X1000 (1.2-3.4); LYMPH% 16.8 % (20.5-51.1); MCHC 33.5 g/dL (33-37); MCV 86.4 FL (81-99); MONO# 0.18 X1000 (0.11-0.59); MONO% 2.7 % (1.7-9.3); NEUT% 80.4 % (42.2-75.2); PLT 130 X1000 (130-400); RBC 4.35 XMIL (4.2-5.4)
[2016-12-12] MEDS: MOVANTIK PO SCH (06:15)
[2016-12-12] MEDS: CARAFATE PO SCH ×5 (06:15→21:37)
[2016-12-12] MEDS: PRILOSEC PO SCH (06:15)
[2016-12-12] MEDS: HUMALOG DOSE (PARKWAY) SUBQ SCH ×4 (06:20→21:39)
[2016-12-12 06:24] LABS: AGAP 9; BUN 20 mg/dL (8-22); CALCIUM 9.6 mg/dL (8.8-10.2); CHLORIDE 102 mmol/L (98-107); COSMO 285; POTASSIUM 3.7 mmol/L (3.5-5.1); SODIUM 137 mmol/L (136-145); TCO2 27 mmol/L (25-35)
[2016-12-12] MEDS ORDERED: LEVAQUIN 500 MG/D5W 500 MG/100 ML IVPB IV SCH (07:58)
[2016-12-12] MEDS: LANTUS INSULIN (PARKWAY) SUBQ SCH (08:15)
[2016-12-12] MEDS: LOVENOX SUBQ SCH (08:15)
[2016-12-12] MEDS: LOPRESSOR PO SCH (08:15)
[2016-12-12] MEDS: MIRALAX PO SCH ×2 (08:15→21:36)
[2016-12-12] MEDS: PLAVIX PO SCH (08:15)
[2016-12-12] MEDS: PHENERGAN PO SCH ×2 (08:16→21:37)
[2016-12-12] MEDS: LEVAQUIN PO SCH (08:16)
[2016-12-12] MEDS: DOXYCYCLINE PO SCH ×2 (08:16→21:38)
[2016-12-12] MEDS: NEURONTIN PO SCH (08:16)
[2016-12-12] MEDS: TRICOR PO SCH (08:16)
[2016-12-12] MEDS: DILAUDID IM PRN ×2 (10:25→21:38)
[2016-12-12] MEDS: NICODERM PATCH TD SCH (11:16)
[2016-12-12] MEDS ORDERED: SOLU-MEDROL IV SCH (18:00)
[2016-12-12] MEDS: MONISTAT 7 VAG SCH (21:36)
[2016-12-12] MEDS: ATIVAN PO SCH (21:37)
[2016-12-13] MEDS: DUONEB (A & A) INH SCH ×3 (03:35→11:00)
[2016-12-13] MEDS: PRILOSEC PO SCH (06:43)
[2016-12-13] MEDS: CARAFATE PO SCH ×2 (06:43→12:00)
[2016-12-13] MEDS: MOVANTIK PO SCH (06:43)
[2016-12-13] MEDS: HUMALOG DOSE (PARKWAY) SUBQ SCH ×2 (06:43→12:02)
[2016-12-13] MEDS: LOVENOX SUBQ SCH (08:38)
[2016-12-13] MEDS: LANTUS INSULIN (PARKWAY) SUBQ SCH (08:38)
[2016-12-13] MEDS: DOXYCYCLINE PO SCH (08:39)
[2016-12-13] MEDS: TRICOR PO SCH (08:39)
[2016-12-13] MEDS: PHENERGAN PO SCH (08:39)
[2016-12-13] MEDS: LEVAQUIN PO SCH (08:39)
[2016-12-13] MEDS: PLAVIX PO SCH (08:39)
[2016-12-13] MEDS: NEURONTIN PO SCH (08:40)
[2016-12-13] MEDS: MIRALAX PO SCH (08:40)
[2016-12-13] MEDS: LOPRESSOR PO SCH (08:40)
[2016-12-13] MEDS: NICODERM PATCH TD SCH (08:47)
--- NOTE | 2016-12-13 09:45 | DISCHARGE SUMMARY ---
ADMISSION DATE: 12/09/2016 DISCHARGE DATE: DISCHARGE DIAGNOSES: 1. Chronic obstructive pulmonary disease with exacerbation. 2. Dementia. 3. Recent diagnosis of pneumonia, stable. 4. Known coronary artery disease, stable. 5. Hypertension, stable. 6. Type 2 diabetes. Mildly elevated blood sugars secondary to steroids but much improved. 7. Chronic tobacco abuse. CONSULTATIONS: None. PROCEDURE: None. BRIEF HOSPITAL COURSE: The patient is an 80-year-old female who was admitted as on the [facility], treated in usual fashion, and placed on Solu-Medrol breathing treatments, antibiotics, oxygen. She slowly improved. On discharge, she is awake, alert. She is having some confusion, but this is chronic for her. She frequently gets lost over where she is. Overall, the patient is improved. Her breathing is almost back to her baseline, although she is still very physically weak and tired and unfit to be able to go home. DISPOSITION: The patient will be discharged to rehab. She will continue her home chronic medications with the addition of doxycycline 100 mg twice a day and Levaquin 500 mg once a day for the next 5 days. Will be placed on a Medrol Dosepak. Otherwise, we will continue her home medications without changes. TIME SPENT: 35 minutes was spent in total discharge care. cc: Rodrigo Brown MD
[2016-12-13 11:21] VITALS: BP 165/87
== END 2016-12-13 14:55 ==
LOC: P.ED 12:00 → P.MEDSURG 13:39 → SUATTDRO 13:39
PROVIDERS: ATTEND Family Medicine